=== PATIENT | female | born 1985 | race Caucasian/White ===

== ENCOUNTER → 2024-11-11 | Outpatient (REF) | payer MEDICARE | LOC: M SFHCDERM 13:06 | PROVIDERS: ATTEND Nurse Practitioner Family | DX: B00.1 Herpesviral vesicular dermatitis (principal) ==

== ENCOUNTER → 2025-03-01 | Outpatient (REF) | payer MEDICARE | LOC: M SFHCDERM 15:33 | PROVIDERS: ATTEND Physician Assistant | DX: Z53.21 Procedure and treatment not carried out due to patient leaving prior to being seen by health care provider (principal) ==

== ENCOUNTER → 2025-07-06 | Outpatient (CLI) | payer OTHER ==
[2025-07-06 17:35] LABS: ALT/SGPT 50 U/L (7.0-40); AST/SGOT 34 U/L (<34); CALCIUM LEVEL 9.2 MG/DL (8.5-10.1); CARBON DIOXIDE LEVEL 27 MMOL/L (20-31); CHLORIDE LEVEL 105 MMOL/L (98-107); CHOLESTEROL LEVEL 170 MG/DL (<200); CHOLESTEROL RISK RATIO 3.31 (<5); CREATININE FOR GFR 0.84 MG/DL (0.55-1.30); GLOMERULAR FILTRATION RATE > 90.0 (>60); LDL CHOLESTEROL 99.5 MG/DL (<100); NON-HDL-C 118.7 MG/DL; POTASSIUM SERUM 4.5 MMOL/L (3.5-5.1); SODIUM LEVEL 143 MMOL/L (136-145); TRIGLYCERIDES LEVEL 96 MG/DL (<150)
== END ==
LOC: M LAB 15:50
PROVIDERS: ATTEND Physician Assistant
DX: L70.0 Acne vulgaris (principal)